=== PATIENT | female | born 1985 | race Two or more races ===

== ENCOUNTER → 2025-02-05 | Outpatient (CLI) | payer MEDICAID, SELFPAY ==
--- NOTE | 2025-02-05 07:30 | XR_ITS ---
Examination: Breast ultrasound complete, bilateral Date and time of exam: February 05, 2025 0733 hours INDICATIONS: Breast sonogram April 30, 2017 BI-RADS 4 suspicious nodule 3 to 4:00 position left breast, bilateral breast pain 4 months Technique: Real-time grayscale ultrasonographic imaging bilateral breasts, including all 4 quadrants as well as nipple retroareolar and axillary regions. Findings: Sonographic images right breast 3:00 nodule circumscribed 16 x 10 mm 10:00 cyst 14 x 8 mm Axillary lymph node 3.2 cm Sonographic images left breast 12:00 nodule circumscribed 7 x 7 mm 3:00 nodule circumscribed 13 x 10 mm 3:00 nodule is irregular 3.8 x 3.2 cm Retroareolar nodule irregular margins 24 x 18 mm 4 cm left axillary lymph node IMPRESSION:: BI-RADS Category 4: Suspicious for malignancy Suspicious masses 3:00 and retroareolar left breast, biopsy both nodules T2 exclude breast carcinoma, ultrasound-guided biopsies are needed In addition bilateral six-month breast sonography follow-up recommended
--- NOTE | 2025-02-05 08:30 | XR_ITS ---
Examination: Diagnostic digital mammography, bilateral Computer aided detection 3-D breast Tomosynthesis, bilateral Date and time of exam: February 05, 2025 0808 hours INDICATIONS: Left breast masses on mammogram April 30, 2017 Technique: Nonmagnified MLO, CC views of the breasts to been obtained, reconstructed from 3-D Tomosynthesis images. R2 computer aided detection program utilized for evaluation of suspicious masses and/or abnormal calcifications. 3-D Tomosynthesis images obtained. Findings: The breasts are heterogeneously dense, which may obscure small masses 14 mm nodule partially circumscribed 3:00 position right breast corresponding to 3:00 nodule 16 mm on right breast sonogram today 30 mm nodule 3:00 position left breast indistinct margins Retroareolar nodule irregular margins 25 mm Impression: BI-RADS Category 4: Suspicious for malignancy Suspicious masses left breast, also noted on left breast sonogram today, 3:00 position retroareolar position, biopsy both nodules needed to exclude breast carcinoma, nodules are amenable to ultrasound-guided breast biopsy for diagnosis
== END | disposition home or self-care (01) ==
LOC: CDIM 07:19
PROVIDERS: Referring Provider Physician Assistant; Visit Provider Physician Assistant
DX: R92.343 Mammographic extreme density, bilateral breasts (principal); N63.25 Unspecified lump in the left breast, overlapping quadrants; N63.42 Unspecified lump in left breast, subareolar
CPT/HCPCS: 76641; 77062; 77066; G0279

== ENCOUNTER → 2025-03-09 | Outpatient (CLI) | payer MEDICAID, SELFPAY ==
[2025-03-06 10:42] LABS: HCG,Qualitative Serum Negative
[2025-03-06 11:33] LABS: INR 0.9 (0.9-1.3); Partial Thromboplastin Time 28.6 Seconds (22.0-36.0); Prothrombin Time 10.3 Seconds (9.0-12.2)
[2025-03-06 12:09] LABS: Basophils # (Auto) 0.0 Thou/mm3 (0.0-0.2); Basophils % (Auto) 0 % (0-2.5); Eosinophils # (Auto) 0.1 Thou/mm3 (0.0-0.5); Eosinophils % (Auto) 1 % (0-10); Hematocrit 42.1 % (36.0-46.0); Hemoglobin 13.9 g/dL (12.0-16.0); Immature Granulocytes Auto 0.04 Thou/mm3 (0.00-0.00); Lymphocytes # (Auto) 2.7 Thou/mm3 (1.0-4.8); Lymphocytes % (Auto) 26 % (10-50); Mean Corpuscular HGB Conc 33.0 g/dl (31.0-37.0); Mean Corpuscular Hemoglobin 27.8 pg (25.0-35.0); Mean Corpuscular Volume 84 fL (80-100); Monocytes # (Auto) 0.3 Thou/mm3 (0.0-0.8); Monocytes % (Auto) 3 % (0-12); Neutrophils # (Auto) 7.2 Thou/mm3 (1.8-7.7); Neutrophils % (Auto) 70 % (37-80); Nucleated Red Blood Cell # 0.00 Thou/mm3 (0.00-0.00); Nucleated Red Blood Cell % 0 /100 WBC (0); Platelet Count 293 Thou/mm3 (140-440); RDW Standard Deviation 39.9 fL (36.4-46.3); Red Blood Count 5.00 Miln/mm3 (4.00-5.20); White Blood Count 10.3 Thou/mm3 (3.6-11.0)
--- NOTE | 2025-03-09 08:30 | XR_ITS ---
Examination: Ultrasound-guided fine needle percutaneous aspiration thyroid nodule, left thyroid nodule. Thyroid sonography, limited Exam date and time: March 09, 2025 0932 hours INDICATIONS: History left thyroid nodule. Technique: A timeout was completed verifying correct patient, procedure, site, positioning and special equipment if applicable. The patient was placed in supine position for the thyroid fine needle percutaneous aspiration The patient's left neck was prepped and draped in sterile fashion. Maximum barrier sterile technique, hand hygiene, ultrasound sterile technique. 1% lidocaine was used to anesthetize the skin and subcutaneous tissues to the patient's right thyroid nodule. Multiple fine needle aspirations were performed and multiple thyroid specimens placed in preservative according to the [facility] protocol. Specimens appears satisfactory. The attending radiologist was present for the entire procedure. Estimated blood loss 3 cc. The patient tolerated the procedure well and there were no complications. Impression: Successful ultrasound-guided fine-needle percutaneous aspiration thyroid nodule, left thyroid nodule.
--- NOTE | 2025-03-09 08:30 | XR_ITS ---
Examinations: Ultrasound-guided percutaneous breast biopsy, left breast retroareolar nodule Left breast sonography limited INDICATIONS: BI-RADS 4 suspicious nodule retroareolar region left breast on left breast sonogram February 05, 2025. Exam date and time: March 09, 2025 0934 hours. Informed consent provided. Technique: A timeout was completed verifying correct patient, procedure, site, positioning, and special equipment if applicable Informed consent provided. The patient was placed in a supine position for the breast biopsy. Sonographic images of the breast were performed for localization of the suspicious nodule The patient's breast was prepped and draped in sterile fashion. Maximum sterile barrier technique, hand hygiene, ultrasound sterile technique 1% lidocaine was used to anesthetize the skin and breast adjacent to the suspicious nodule. Utilizing ultrasonographic guidance, 8 core biopsies were obtained of the suspicious nodule utilizing an 18-gauge BioPince needle. The specimens appears satisfactory. US guided breast biopsy marker placement. Estimated blood loss 3 cc. The patient tolerated the procedure well and there were no complications. Impression: Successful ultrasound-guided percutaneous breast biopsy, left breast retroareolar nodule. Ultrasound guided breast biopsy marker placement.
== END | disposition home or self-care (01) ==
LOC: SDIM 08:15
PROVIDERS: Radiology Diagnostic Radiology; PCP Physician Assistant; Referring Provider Physician Assistant; Visit Provider Physician Assistant
DX: D24.2 Benign neoplasm of left breast (principal); N60.12 Diffuse cystic mastopathy of left breast; Z01.812 Encounter for preprocedural laboratory examination
CPT/HCPCS: 19083; 19084; 36415; 84703; 85025; 85610; 85730; A4648